=== PATIENT | female | born 1985 | race Caucasian/White ===

== ENCOUNTER 2016-12-18 17:21 | Emergency (ER) ==
[2016-12-18 17:33] VITALS: BP 157/105; TEMP 99.3; BMI 37.8
[2016-12-18] MEDS ORDERED: CATAPRES PO STA (18:23)
[2016-12-18 18:28] LABS: BILIRUBIN,URINE Negative (NEGATIVE); KETONES,URINE Negative (NEGATIVE); LEUKOCYTE ESTERASE ,URINE 2+ (NEGATIVE); NITRITE,URINE Negative (NEGATIVE); PROTEIN,URINE Negative (NEGATIVE); URINE, BLOOD 3+ (NEGATIVE)
[2016-12-18 18:29] LABS: ADD URINE MICROSCOPIC YES
[2016-12-18 18:30] LABS: BACTERIA,URINE TRACE (NOT PRESENT)
[2016-12-18 18:35] LABS: EOSINOPHILS # (AUTO) 0.2 K/ul (0.0-0.7); EOSINOPHILS % (AUTO) 2.5 % (0.0-7.0); HEMATOCRIT 25.9 % (37.0-47.0); IMMATURE GRANULOCYTE % (AUTO) 1.7 % (0.0-5.0); LYMPHOCYTES # (AUTO) 1.5 K/uL (0.60-3.4); MEAN CORPUSCULAR HEMOGLOBIN 29.7 pg (27.0-31.0); MEAN CORPUSCULAR HGB CONC 34.7 (31.8-35.4); MEAN CORPUSCULAR VOLUME 85.5 fl (81.0-99.0); MONOCYTES # (AUTO) 0.6 K/uL (0.4-2.0); MONOCYTES % (AUTO) 7.9 (0-10); NEUTROPHILS # (AUTO) 5.2 K/ul (2.0-6.9); NEUTROPHILS % (AUTO) 67.9; PLATELET COUNT 249 10^3/uL (140-440); RED BLOOD COUNT 3.03 10^6/ul (4.20-5.40); WHITE BLOOD COUNT 7.64 K/ul (4.6-10.2)
[2016-12-18 18:54] LABS: ALBUMIN 2.6 g/dL (3.4-5.0); ALBUMIN/GLOBULIN RATIO 0.72; BILIRUBIN,TOTAL 0.22 mg/dL (0.00-1.20); BUN/CREATININE RATIO 18.57; CALCIUM 8.8 mg/dL (8.2-10.2); CREATININE 0.7 mg/dL (0.60-1.30); TOTAL PROTEIN 6.2 g/dL (6.4-8.2)
--- NOTE | 2016-12-18 19:06 | ED.PDOC ---
General ED Provider: Dr. ANNIE SWEENEY-ER Chief Complaint: Hypertension Stated Complaint: my bp was up earlier--i had cole but its better now Time Seen by Physician: 17:30 Mode of Arrival: Walk-In Information Source: Patient, Family Exam Limitations: No limitations Nursing and Triage Documentation Reviewed and Agree: Yes Cardiovascular Complaint Exam - Hypertension Complaint/Exam Onset/Duration: 180/110 Symptoms Are: Still present Timing: Intermittent Aggravating: Reports: None Alleviating: Reports: None Associated Signs and Symptoms: Reports: Anxiety, Headache, Numbness, Tingling. Denies: Chest pain, Vision changes, Recent stress, Weakness, Dizziness, Short of air, Swelling Related History: Reports: Current Hugh Inhibitors Related Surgical History: Reports: None Cardiac Risk Factors: Reports: Hypertension Recent Change in Medications: No A/V Nicking: No Papilledema Present: No JVD Present: No Carotid Bruit Present: No Femoral Pulses Bounding: No Differential Diagnoses: Hypertension Review of Systems - Review Of Systems Constitutional: Reports: No symptoms Eyes: Reports: No symptoms Ears, Nose, Mouth, Throat: Reports: No symptoms Respiratory: Reports: No symptoms Cardiac: Reports: Chest pain (but resolved) GI: Reports: No symptoms : Reports: No symptoms Musculoskeletal: Reports: No symptoms Skin: Reports: No symptoms Neurological: Reports: Anxiety, Headache Endocrine: Reports: No symptoms Hematologic/Lymphatic: Reports: No symptoms All Other Systems: Reviewed and Negative Past Medical History - Past Medical History Endocrine: Reports: Unknown Cardiovascular: Reports: Hypertension Respiratory: Reports: None Hematological: Reports: None Gastrointestinal: Reports: None Genitourinary: Reports: None Neuro/Psych: Reports: None Musculoskeletal: Reports: None Cancer: Reports: None Last Menstrual Period: recent - Surgical History General Surgical History: Reports: Unknown - Family History Family History: Reports: Unknown - Social History Smoking Status: Current every day smoker, Light tobacco smoker Hx Substance Use: No Alcohol Screening: Occasionally Physical Exam - Physical Exam Appearance: Well-appearing, No pain distress, Well-nourished Eyes: MICHAEL, EOMI, Conjunctiva clear ENT: Ears normal, Nose normal, Oropharynx normal Respiratory: Airway patent, Breath sounds clear, Breath sounds equal, Respirations nonlabored Cardiovascular: RRR, Pulses normal, No rub, No murmur GI/: Soft, Nontender, No masses, Bowel sounds normal, No Organomegaly Musculoskeletal: Normal strength, ROM intact, No edema, No calf tenderness Skin: Warm, Dry, Normal color Neurological: Sensation intact, Motor intact, Reflexes intact, Cranial nerves intact, Alert, Oriented Psychiatric: Affect appropriate, Mood appropriate Re-Evaluation - Re-Evaluation Time of Re-Evaluation: 19:06 Status: Improved (bp 140/80--no cole or chest pain) Vital Signs Stable: Yes Pain Level: 0 Appearance: NAD Lungs: Clear Skin: Warm and Dry Neuro: Alert and Oriented X3 CV: RRR Critical Care Note - Critical Care Note Total Time (mins): 0 Course - Course Hematology/Chemistry: 12/18/16 18:25 12/18/16 18:25 Orders, Labs, Meds: Lab Review 12/18/16 12/18/16 18:20 18:25 WBC 7.64 RBC 3.03 L Hgb 9.0 L Hct 25.9 L MCV 85.5 MCH 29.7 MCHC 34.7 RDW Coeff of Racquel 13.0 Plt Count 249 Immature Gran % (Auto) 1.7 Neut % (Auto) 67.9 Lymph % (Auto) 20.0 Esmeralda % (Auto) 7.9 Eos % (Auto) 2.5 Baso % (Auto) 0.0 Immature Gran # (Auto) 0.1 Neut # 5.2 Lymph # 1.5 Esmeralda # 0.6 Eos # 0.2 Baso # 0.0 Sodium 140 Potassium 4.0 Chloride 105 Carbon Dioxide 27 Anion Gap 12.0 BUN 13 Creatinine 0.70 Estimated GFR (MDRD) 98.00 BUN/Creatinine Ratio 18.57 Glucose 91 Calcium 8.8 Total Bilirubin 0.22 AST 12 L ALT 14 Alkaline Phosphatase 82 Total Protein 6.2 L Albumin 2.6 L Globulin 3.6 Albumin/Globulin Ratio 0.72 Urine Color Yellow Urine Clarity Clear Urine pH 7.0 Ur Specific [place] 1.010 Urine Protein Negative Urine Glucose (UA) Negative Urine Ketones Negative Urine Blood 3+ Urine Nitrite Negative Urine Bilirubin Negative Urine Urobilinogen 0.2 Ur Leukocyte Esterase 2+ Urine Microscopic RBC 5-10 Urine Microscopic WBC 5-10 Ur Squamous Epith Cells Not present Urine Bacteria Trace Orders Category Date Time Status CBC W/ AUTO DIFF Stat LAB 12/18/16 18:25 Completed COMPREHENSIVE METABOLIC PANEL Stat LAB 12/18/16 18:25 Completed URINALYSIS C & S IF INDICATED Stat LAB 12/18/16 18:20 Completed URINE CULTURE Stat LAB 12/18/16 18:20 Received Clonidine HCl [Catapres] MEDS 12/18/16 18:23 Discontinued 0.1 mg PO ONCE STA Medications Discontinued Medications Generic Name Dose Route Start Last Admin Trade Name Prabha PRN Reason Stop Dose Admin Clonidine 0.1 mg 12/18/16 18:23 12/18/16 18:29 Catapres PO 12/18/16 18:24 0.1 mg ONCE STA Administration Vital Signs: Temp Pulse Resp BP Pulse Ox 12/18/16 17:21 99.3 F 97 H 20 157/105 H 99 YARY Risk Score YARY Risk Score: Risk Score Odds of by 30D 0 0.1 (0.1-0.2) 1 0.3 (0.2-0.3) 2 0.4 (0.3-0.5) 3 0.7 (0.6-0.9) 4 1.2 (1.0-1.5) 5 2.2 (1.9-2.6) 6 3.0 (2.5-3.6) 7 4.8 (3.8-6.1) Departure - Departure Time of Disposition: 19:07 Disposition: HOME SELF-CARE Discharge Problem: HTN (hypertension) Qualifiers: Hypertension type: essential hypertension Qualifier Code: (I10) Essential ( primary) hypertension Instructions: How to Take a Blood Pressure (ED), DASH Eating Plan (ED), Hypertension (ED) Condition: Good Pt referred to PMD for follow-up: Yes Additional Instructions: increase lisinopril to 20mg and check bp.. Allergies/Adverse Reactions: Allergies No Known Allergies Allergy (Verified 12/18/16 17:30) Home Medications: Ambulatory Orders Lisinopril 10 mg PO DAILY 12/18/16 Disposition Discussed With: Patient, Family
== END 2016-12-18 19:10 | disposition home or self-care (01) ==
LOC: ED 17:21
DX: I10 Essential (primary) hypertension (principal); Z98.890 Other specified postprocedural states; F17.210 Nicotine dependence, cigarettes, uncomplicated
CPT/HCPCS: 36415; 80053; 81001; 85025; 87086; 99283

== ENCOUNTER 2017-01-19 20:27 | Emergency (ER) ==
[2017-01-19 20:35] VITALS: BP 155/105; TEMP 99.1; BMI 35.7
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
[2017-01-19] MEDS ORDERED: LACTATED RINGERS 1,000 ML IV STA (20:57)
[2017-01-19 21:00] LABS: URINE PREGNANCY INTERNAL QC INTERNAL QC VALID
== END 2017-01-19 21:54 | disposition home or self-care (01) ==
LOC: ED 20:27
DX: S09.90XA Unspecified injury of head, initial encounter (principal); H74.8X2 Other specified disorders of left middle ear and mastoid; R51 Headache; M54.2 Cervicalgia; I10 Essential (primary) hypertension; V87.8XXA Person injured in other specified noncollision transport accidents involving motor vehicle (traffic), initial encounter; F17.210 Nicotine dependence, cigarettes, uncomplicated
CPT/HCPCS: 81025; 96360; 96374; 99285

== ENCOUNTER 2017-01-27 12:10 | Outpatient (CLI) | END 2017-01-27 12:11 | LOC: AMBL 12:10 | PROVIDERS: ATTEND Internal Medicine | DX: F41.9 Anxiety disorder, unspecified (principal); S09.90XD Unspecified injury of head, subsequent encounter; V87.8XXD Person injured in other specified noncollision transport accidents involving motor vehicle (traffic), subsequent encounter ==

== ENCOUNTER → 2017-02-03 | Outpatient (POV) ==
[2017-01-19 20:35] VITALS: BMI 35.7
== END ==
LOC: OUTPT 00:01
PROVIDERS: ATTEND Otolaryngology
DX: H90.5 Unspecified sensorineural hearing loss (principal)
CPT/HCPCS: 92557; 92567

== ENCOUNTER 2017-05-12 09:09 | Outpatient (CLI) ==
[2017-05-12 09:55] LABS: BASOPHILS % (AUTO) 0.1 % (0.0-3.0); EOSINOPHILS # (AUTO) 0.4 K/ul (0.0-0.7); EOSINOPHILS % (AUTO) 4.9 % (0.0-7.0); HEMATOCRIT 39.4 % (37.0-47.0); HEMOGLOBIN 13.9 g/dl (12.0-16.0); IMMATURE GRANULOCYTE % (AUTO) 0.2 % (0.0-5.0); LYMPHOCYTES # (AUTO) 2.6 K/uL (0.60-3.4); LYMPHOCYTES % (AUTO) 31.5 (10.0-50.0); MEAN CORPUSCULAR HEMOGLOBIN 30.3 pg (27.0-31.0); MEAN CORPUSCULAR HGB CONC 35.3 (31.8-35.4); MEAN CORPUSCULAR VOLUME 85.8 fl (81.0-99.0); MONOCYTES # (AUTO) 0.5 K/uL (0.4-2.0); MONOCYTES % (AUTO) 6.5 (0-10); NEUTROPHILS # (AUTO) 4.7 K/ul (2.0-6.9); NEUTROPHILS % (AUTO) 56.8; PLATELET COUNT 242 10^3/uL (140-440); RED BLOOD COUNT 4.59 10^6/ul (4.20-5.40); WHITE BLOOD COUNT 8.31 K/ul (4.6-10.2)
[2017-05-12 10:00] LABS: BILIRUBIN,URINE Negative (NEGATIVE); KETONES,URINE Negative (NEGATIVE); LEUKOCYTE ESTERASE ,URINE Negative (NEGATIVE); NITRITE,URINE Negative (NEGATIVE); PH,URINE 5.5 (5-9); PROTEIN,URINE Negative (NEGATIVE); URINE, BLOOD 2+ (NEGATIVE)
[2017-05-12 10:05] LABS: ADD URINE MICROSCOPIC YES
--- NOTE | 2017-05-12 10:06 | DI ---
EXAM: Lumbar spine radiographs. HISTORY: Low back pain. COMPARISON: None available. TECHNIQUE: 3 views of the lumbar spine. FINDINGS: The normal curvature and alignment are maintained. Vertebral body and intervertebral dis c heights are normal. No fracture or subluxation identified. Sacral arcuate lines are intact. Sof t tissues are unremarkable. IMPRESSION: No abnormality of the lumbar spine.
[2017-05-12 10:08] LABS: URINE PREGNANCY INTERNAL QC INTERNAL QC VALID
[2017-05-12 10:13] LABS: COCAIN SCREEN,URINE NEGATIVE (NEGATIVE)
[2017-05-12 11:12] LABS: ALBUMIN 4.1 g/dL (3.4-5.0); ALBUMIN/GLOBULIN RATIO 1.11; BILIRUBIN,TOTAL 0.3 mg/dL (0.00-1.20); BUN/CREATININE RATIO 14.47; CALCIUM 9.1 mg/dL (8.2-10.2); CHOL/HDL RATIO 6.8 (4.5-5.5); CREATININE 0.76 mg/dL (0.60-1.30); TOTAL PROTEIN 7.8 g/dL (6.4-8.2)
== END 2017-05-12 09:10 | disposition home or self-care (01) ==
LOC: RAD 09:09
PROVIDERS: ATTEND Family Medicine
DX: M54.5 Low back pain (principal); M54.16 Radiculopathy, lumbar region; Z00.00 Encounter for general adult medical examination without abnormal findings; E66.9 Obesity, unspecified; Z87.820 Personal history of traumatic brain injury
CPT/HCPCS: 36415; 80053; 80061; 80306; 81001; 81025; 84439; 84443; 85025

== ENCOUNTER 2017-05-22 15:18 | Outpatient (CLI) ==
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
== END 2017-05-22 15:19 | disposition home or self-care (01) ==
LOC: RAD 15:18
PROVIDERS: ATTEND Family Medicine
DX: R51 Headache (principal); R42 Dizziness and giddiness; Z87.828 Personal history of other (healed) physical injury and trauma

== ENCOUNTER 2017-06-13 17:44 | Emergency (ER) ==
[2017-06-13 17:49] VITALS: BP 152/100; TEMP 98.6; BMI 34.9
[2017-06-13] MEDS ORDERED: AUGMENTIN 500-125 MG TAB PO STA (19:10)
[2017-06-13] MEDS ORDERED: TORADOL IM STA (19:10)
--- NOTE | 2017-06-13 19:12 | ED.PDOC ---
General ED Provider: Dr. JESSEE DOZIER Chief Complaint: Tooth Problem Stated Complaint: Hurting in the rt upper tooth, broken , swollen gum, has f/u with dentist next month Time Seen by Physician: 19:10 Mode of Arrival: Walk-In Information Source: Patient Primary Care Provider: ENRIKE MANCILLA Nursing and Triage Documentation Reviewed and Agree: Yes EENT Complaint Exam - Dental/Oral Complaint/Exam Mechanism of Injury: No known trauma Symptoms Are: Still present Timing: Constant Initial Severity: Moderate Current Severity: Severe Character: Reports: Aching, Throbbing Aggravating: Reports: Cold, Chewing Alleviating: Reports: None Associated Signs and Symptoms: Reports: Swelling, Foul odor, Foul taste in mouth Cardiac Risk Factors: Reports: None Dental/Oral Surgical History: Reports: None Tooth Findings: Present: Percussion tenderness, Gross decay, Dental fracture, Cellulitis Cervical Lymphadenopathy Present: No Facial Swelling Present: No Bleeding Present: No Teeth Picture: 1 - broken teeth, swollen gums Differential Diagnoses: Dental Caries, Fractured Tooth Review of Systems - Review Of Systems Constitutional: Reports: No symptoms Eyes: Reports: No symptoms Ears, Nose, Mouth, Throat: Reports: Mouth pain Respiratory: Reports: No symptoms Cardiac: Reports: No symptoms GI: Reports: No symptoms : Reports: No symptoms Musculoskeletal: Reports: No symptoms Skin: Reports: No symptoms Neurological: Reports: No symptoms Endocrine: Reports: No symptoms Hematologic/Lymphatic: Reports: No symptoms All Other Systems: Reviewed and Negative Past Medical History - Past Medical History Previously Healthy: Yes Endocrine: Reports: Unknown Cardiovascular: Reports: Hypertension Respiratory: Reports: None Hematological: Reports: None Gastrointestinal: Reports: None Genitourinary: Reports: None Neuro/Psych: Reports: None Musculoskeletal: Reports: None Cancer: Reports: None Last Menstrual Period: now - Surgical History General Surgical History: Reports: Unknown - Family History Family History: Reports: Unknown - Social History Smoking Status: Current every day smoker, Light tobacco smoker Smoking Cessation Counseling Time: > 3 min - 10 min Hx Substance Use: No Alcohol Screening: Occasionally Physical Exam - Physical Exam Appearance: Ill-appearing, Obese Pain Distress: Moderate Eyes: MICHAEL, EOMI, Conjunctiva clear ENT: Ears normal, Nose normal, Oropharynx normal Respiratory: Airway patent, Breath sounds clear, Breath sounds equal, Respirations nonlabored Cardiovascular: RRR, Pulses normal, No rub, No murmur GI/: Soft, Nontender, No masses, Bowel sounds normal, No Organomegaly Musculoskeletal: Normal strength, ROM intact, No edema, No calf tenderness Skin: Warm, Dry, Normal color Neurological: Sensation intact, Motor intact, Reflexes intact, Cranial nerves intact, Alert, Oriented Psychiatric: Affect appropriate, Mood appropriate Critical Care Note - Critical Care Note Total Time (mins): 0 Course - Course Orders, Labs, Meds: Orders Category Date Time Status Amoxicillin/Potassium Clav [Augmentin 500-125 mg Tab] MEDS 06/13/17 19:10 Stat 1 tab PO ONCE STA Ketorolac Tromethamine [Toradol] MEDS 06/13/17 19:10 Stat 60 mg IM ONCE STA Vital Signs: Temp Pulse Resp BP Pulse Ox 06/13/17 17:45 98.6 F 82 18 152/100 H 97 Departure - Departure Time of Disposition: 19:26 Disposition: HOME SELF-CARE Discharge Problem: Toothache Instructions: Toothache (ED) Condition: Good Pt referred to PMD for follow-up: Yes Additional Instructions: please keep f/u with dentist keep checking the BP f/u with Dr Mancilla. Prescriptions: Amoxicillin/Potassium Clav [Augmentin 500-125 mg Tab] 1 tab PO Q12HR #20 tablet Tramadol HCl 50 mg PO BID #14 tablet Allergies/Adverse Reactions: Allergies No Known Allergies Allergy (Verified 06/13/17 17:49) Home Medications: Ambulatory Orders Amoxicillin/Potassium Clav [Augmentin 500-125 mg Tab] 1 tab PO Q12HR #20 tablet 06/13/17 Atorvastatin Calcium [Lipitor] 20 mg PO BEDTIME 06/13/17 Levothyroxine Sodium [Synthroid] 50 mcg PO QDAC 06/13/17 Lisinopril 20 mg PO DAILY 06/13/17 Tramadol HCl 50 mg PO BID #14 tablet 06/13/17 Disposition Discussed With: Patient
== END 2017-06-13 19:30 | disposition home or self-care (01) ==
LOC: ED 17:44
DX: K08.89 Other specified disorders of teeth and supporting structures (principal); S02.5XXA Fracture of tooth (traumatic), initial encounter for closed fracture; K02.7 Dental root caries; F17.210 Nicotine dependence, cigarettes, uncomplicated
CPT/HCPCS: 96372; 99282

== ENCOUNTER 2017-06-26 11:36 | Outpatient (CLI) ==
--- NOTE | 2017-06-26 14:00 | DI ---
Exam: Three x-rays of the cervical spine. Comparison: None available. Reason for exam: Neck pain. FINDINGS: No acute fracture or malalignment. The vertebral bodies intervertebral body disc space h eights are well maintained. The prevertebral soft tissues are within normal limits. There is strai ghtening of the cervical lordosis. The dens is intact on the Coles view. Impression: No obvious fracture or listhesis in the cervical spine
--- NOTE | 2017-06-26 14:03 | DI ---
Exam: Three x-rays of the thoracic spine. Comparison: CT scan performed 06/19/2015. Reason for exam: Thoracic pain. FINDINGS: No acute fracture or listhesis. The vertebral bodies and intervertebral body disc space heights are well maintained. There is a normal appearing thoracic kyphotic curve. Impression: No acute osseous abnormalities are seen within the thoracic spine.
== END 2017-06-26 11:37 | disposition home or self-care (01) ==
LOC: RAD 11:36
PROVIDERS: ATTEND Family Medicine
DX: M54.2 Cervicalgia (principal); M54.6 Pain in thoracic spine

== ENCOUNTER 2018-04-19 17:12 | Emergency (ER) | payer OTHER ==
[2018-04-19 17:16] VITALS: BP 142/81; TEMP 98.6; BMI 35.7
--- NOTE | 2018-04-19 18:03 | ED.PDOC ---
General ED Provider: Dr. ANNIE PATRICIO Chief Complaint: Back Pain Stated Complaint: Middle back pain. Sudden onset. No knowledge of injury. 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 Has taken Naprosyn with minimal relief. Time Seen by Physician: 17:50 Mode of Arrival: Walk-In Information Source: Patient Exam Limitations: No limitations Primary Care Provider: EVAN MCCANN Nursing and Triage Documentation Reviewed and Agree: Yes Reviewed sepsis parameters & appropriate labs ordered?: Yes System Inflammatory Response Syndrome: Not Applicable Sepsis Protocol: For patient's 13 years and over: Temp is 96.8 and below OR 101 and greater Pulse >90 BPM Resp >20/minute Acutely Altered Mental Status Are patient's symptoms suggestive of a new infection, such as: -Pneumonia -Skin, Soft Tissue -Endocarditis -UTI -Bone, Joint Infection -Implantable Device -Acute Abdominal Infection -Wound Infection -Meningitis -Blood Stream Catheter Infection -Unknown Musculoskeletal Complaint Exam - Back Pain Complaint/Exam Mechanism of Injury: Reports: No known trauma Onset/Duration: 2days Symptoms Are: Still present Timing: Intermittent Episodes Lasting: Hours Initial Severity: Moderate Current Severity: Moderate Location: Reports: Discrete Character: Reports: Sharp, Aching, Spasmodic Aggravating: Reports: Movements, Lifting, Bending, Walking, Cough Alleviating: Reports: Rest Associated Signs and Symptoms: Denies: Swelling, Redness, Bruising, Fever, Weakness, Numbness, Tingling, Abdominal pain, Flank pain, Bladder incontinence, Bowel incontinence, Weight loss, Pain with weight bearing TAD Risk Factors: Reports: None AAA Risk Factors: Reports: None Cauda Equina Risk Factors: Reports: None Epidural Abcess Risk Factors: Reports: None Related Surgical History: Reports: None Focal Tenderness: Yes (Lt T4-5) Paraspinal Muscle Tenderness: Yes (Lt T4-5) Paraspinal Muscle Spasm: Yes (thoracic) Scoliosis: No Lordosis: No Kyphosis: No SLR Test: Right Negative, Left Negative Hip Motion Testing Pain: Right Negative, Left Negative Focal Weakness: Present: None Focal Sensory Loss: Present: None Gait: Present: Normal Differential Diagnoses: Strain, Other (Thoracic myofascial strain and spasm) Review of Systems - Review Of Systems Constitutional: Reports: No symptoms Eyes: Reports: No symptoms Ears, Nose, Mouth, Throat: Reports: No symptoms Respiratory: Reports: No symptoms Cardiac: Reports: No symptoms GI: Reports: No symptoms : Reports: No symptoms Musculoskeletal: Reports: Back pain Skin: Reports: No symptoms Neurological: Reports: No symptoms Endocrine: Reports: No symptoms Hematologic/Lymphatic: Reports: No symptoms All Other Systems: Reviewed and Negative Past Medical History - Past Medical History Previously Healthy: Yes Endocrine: Reports: Unknown Cardiovascular: Reports: Hypertension Respiratory: Reports: None Hematological: Reports: None Gastrointestinal: Reports: None Genitourinary: Reports: None Neuro/Psych: Reports: None Musculoskeletal: Reports: Back Pain Cancer: Reports: None Last Menstrual Period: 04/18/18 - Surgical History General Surgical History: Reports: Unknown - Family History Family History: Reports: Unknown - Social History Smoking Status: Current every day smoker, Light tobacco smoker Hx Substance Use: No Alcohol Screening: Occasionally - Immunizations Tetanus Shot up to Date: Yes Physical Exam - Physical Exam Appearance: Well-appearing, No pain distress, Well-nourished Ill-appearing: None Pain Distress: Mild Eyes: MICHAEL, EOMI, Conjunctiva clear ENT: Ears normal, Nose normal, Oropharynx normal Respiratory: Airway patent, Breath sounds clear, Breath sounds equal, Respirations nonlabored Cardiovascular: RRR, Pulses normal, No rub, No murmur GI/: Soft, Nontender, No masses, Bowel sounds normal, No Organomegaly Musculoskeletal: Normal strength (Tenderness Lt Mid thoracic region 4-5), ROM intact, No edema, No calf tenderness Skin: Warm, Dry, Normal color Neurological: Sensation intact, Motor intact, Reflexes intact, Cranial nerves intact, Alert, Oriented Psychiatric: Affect appropriate, Mood appropriate Procedures - Additional Procedures Additional Procedures: Other (Lt mid thoracic 4-5 OMT/Counterstrain with symptomatic resolution of pain and spasm) Re-Evaluation - Re-Evaluation Time of Re-Evaluation: 18:25 Status: Improved Vital Signs Stable: Yes Pain Level: 0/10 Appearance: NAD Lungs: Clear Skin: Warm and Dry Neuro: Alert and Oriented X3 CV: RRR Critical Care Note - Critical Care Note Total Time (mins): 0 Course - Course Orders, Labs, Meds: Orders Category Date Time Status THORACIC SPINE, 3 VIEWS Stat RADS 04/19/18 18:24 Completed Vital Signs: Temp Pulse Resp BP Pulse Ox 04/19/18 17:13 98.6 F 85 18 142/81 H 97 Departure - Departure Time of Disposition: 18:50 Disposition: HOME SELF-CARE Discharge Problem: Spasm of thoracic back muscle, Somatic dysfunction of thoracic region Instructions: Trigger Point Pain (ED), Muscle Spasm (ED) Condition: Good Pt referred to PMD for follow-up: Yes IPMP verified?: No Additional Instructions: Apply warm moist heat to area of discomfort Take Naprosyn 375 mg twice daily for pain control or Ibuprofen 200 mg 2-3 tabs 4 times daily Avoid lifting Exercises as directed Allergies/Adverse Reactions: Allergies No Known Allergies Allergy (Verified 04/19/18 17:16) Home Medications: Ambulatory Orders 1 [No Reported Medications] 04/19/18 Disposition Discussed With: Patient
--- NOTE | 2018-04-19 18:48 | DI ---
EXAM: Thoracic spine; AP, lateral, and swimmer's lateral views HISTORY: Left upper thoracic spine tenderness FINDINGS: The vertebrae have normal height and alignment. The intervertebral joint spaces are mildl y narrowed diffusely. No acute fracture or lithesis are appreciated. IMPRESSION: No acute fracture or lithesis. Mild diffuse degenerative disc disease.
== END 2018-04-19 18:56 | disposition home or self-care (01) ==
LOC: ED 17:12
DX: M62.830 Muscle spasm of back (principal); M99.02 Segmental and somatic dysfunction of thoracic region; F17.210 Nicotine dependence, cigarettes, uncomplicated
CPT/HCPCS: 99282

== ENCOUNTER 2018-12-29 09:10 | Emergency (ER) ==
[2018-12-29 09:10] VITALS: BMI 35.7
[2018-12-29 09:14] VITALS: TEMP 98.9
[2018-12-29] MEDS ORDERED: TORADOL IM STA (10:26)
--- NOTE | 2018-12-29 10:27 | ED.PDOC ---
General ED Provider: Dr. ANNIE PATRICIO Chief Complaint: Tooth Problem Stated Complaint: Severe Tooth ache. Upper lt jaw promimal mandibular region- causing severe pressure to face and ear Time Seen by Physician: 09:50 (Delayed encounter due to transfer ) Mode of Arrival: Walk-In Information Source: Patient Exam Limitations: No limitations Primary Care Provider: ENRIKE RAY Nursing and Triage Documentation Reviewed and Agree: Yes Does patient meet sepsis criteria?: No System Inflammatory Response Syndrome: Not Applicable Sepsis Protocol: For patient's 13 years and over: Temp is 96.8 and below OR 101 and greater Pulse >90 BPM Resp >20/minute Acutely Altered Mental Status Are patient's symptoms suggestive of a new infection, such as: -Pneumonia -Skin, Soft Tissue -Endocarditis -UTI -Bone, Joint Infection -Implantable Device -Acute Abdominal Infection -Wound Infection -Meningitis -Blood Stream Catheter Infection -Unknown EENT Complaint Exam - Dental/Oral Complaint/Exam Mechanism of Injury: No known trauma Onset/Duration: 3-4 days Symptoms Are: Worse Timing: Constant Initial Severity: Moderate Current Severity: Severe Character: Reports: Throbbing Aggravating: Reports: Chewing Alleviating: Reports: None Associated Signs and Symptoms: Reports: Swelling Related History: Reports: Third molars present Cardiac Risk Factors: Reports: None Dental/Oral Surgical History: Reports: None Tooth Findings: Present: Percussion tenderness (lt wisdom tooth) Facial Swelling Present: Yes Septal Hematoma: No Foreign Body Present: No Dysphagia Present: No Drooling Present: No Asymmetrical Tonsillar Swelling Present: No Uvula Midline: Yes Marian-tonsillar Fluctuence: No Trismus Present: No Scarlatinaform Rash Present: No Lesions: Absent: Lip, Buccal Mucosa, Pharynx Exanthem: Absent: Lip, Buccal Mucosa, Pharynx Vesicles: Absent: Lip, Buccal Mucosa, Pharynx Review of Systems - Review Of Systems Constitutional: Reports: No symptoms Eyes: Reports: No symptoms Ears, Nose, Mouth, Throat: Reports: No symptoms, Mouth pain Respiratory: Reports: No symptoms Cardiac: Reports: No symptoms GI: Reports: No symptoms : Reports: No symptoms Musculoskeletal: Reports: No symptoms Skin: Reports: No symptoms Neurological: Reports: No symptoms Endocrine: Reports: No symptoms Hematologic/Lymphatic: Reports: No symptoms All Other Systems: Reviewed and Negative Past Medical History - Past Medical History Previously Healthy: Yes Endocrine: Reports: Unknown Cardiovascular: Reports: Hypertension Respiratory: Reports: None Hematological: Reports: None Gastrointestinal: Reports: None Genitourinary: Reports: None Neuro/Psych: Reports: None Musculoskeletal: Reports: Back Pain Cancer: Reports: None Last Menstrual Period: middle nov. - Surgical History General Surgical History: Reports: Unknown - Family History Family History: Reports: Unknown - Social History Smoking Status: Current every day smoker, Light tobacco smoker Hx Substance Use: No Alcohol Screening: Occasionally Physical Exam - Physical Exam Appearance: Well-appearing, Well-nourished Ill-appearing: None Pain Distress: Moderate Eyes: MICHAEL, EOMI, Conjunctiva clear ENT: Ears normal, Nose normal, Oropharynx normal (lt sided maxiallary ridge pain ) Neck: Supple (Tender Lt side surrounding angle mandible) Respiratory: Airway patent, Breath sounds clear, Breath sounds equal, Respirations nonlabored Cardiovascular: RRR, Pulses normal, No rub, No murmur GI/: Soft, Nontender, No masses, Bowel sounds normal, No Organomegaly Musculoskeletal: Normal strength, ROM intact, No edema, No calf tenderness Skin: Warm, Dry, Normal color Neurological: Sensation intact, Motor intact, Reflexes intact, Cranial nerves intact, Alert, Oriented Psychiatric: Affect appropriate, Mood appropriate Critical Care Note - Critical Care Note Total Time (mins): 0 Course - Course Vital Signs: Temp Pulse Resp BP Pulse Ox 12/29/18 09:12 98.9 F 93 H 20 0/0 L 97 Departure - Departure Time of Disposition: 11:50 Disposition: HOME SELF-CARE Discharge Problem: Pain due to dental caries Instructions: Toothache (ED) Condition: Good Pt referred to PMD for follow-up: Yes (in next week) IPMP verified?: Yes Additional Instructions: Risnse mouth out with warm salt water 3-4 times daily Take meds for pain and antibiotics as directed Seek care by dentist Prescriptions: Amoxicillin 875 mg PO BID #20 tablet Ketorolac Tromethamine [Toradol] 10 mg PO Q6H PRN #20 tablet PRN Reason: Severe Pain Allergies/Adverse Reactions: Allergies No Known Allergies Allergy (Verified 12/29/18 09:14) Home Medications: Ambulatory Orders Amoxicillin 875 mg PO BID #20 tablet 12/29/18 Ketorolac Tromethamine [Toradol] 10 mg PO Q6H PRN #20 tablet 12/29/18 Disposition Discussed With: Patient
[2018-12-29 10:33] VITALS: BP 154/90
--- NOTE | 2018-12-29 10:56 | CT ---
EXAM: CT facial bones without contrast. HISTORY: Left maxillary pain, tooth pain. COMPARISON: Head CT 05/22/2017. TECHNIQUE: Multiple axial images of the facial bones were obtained without contrast and were reforma tted in the sagittal and coronal planes. FINDINGS: Dental caries involving the year left maxillary molar noted on coronal image 19 and sagitt al image 17. There is no evidence for periapical abscess. No adjacent fluid collections are seen. There is mild mucosal thickening within the left maxillary sinus. Polyp or retention cyst noted in t he inferior right maxillary sinus. Ostiomeatal units are patent. Paranasal sinuses are otherwise cl ear. Mastoid air cells are clear. There is rightward deviation of the nasal septum and perpendicular plate. No facial fracture detected. Globes and intraorbital structures are intact. Nonenlarged cervical ly mph nodes are present. IMPRESSION: 1. Left maxillary molar dental caries. No abscess identified. 2. Maxillary sinus mucosal disease.
== END 2018-12-29 12:12 | disposition home or self-care (01) ==
LOC: ED 09:10
DX: K08.89 Other specified disorders of teeth and supporting structures (principal); K02.7 Dental root caries; F17.210 Nicotine dependence, cigarettes, uncomplicated
CPT/HCPCS: 96372; 99282